=== PATIENT | male | born 1955 | race Caucasian/White ===

== ENCOUNTER 2017-12-23 14:56 | Emergency (ER) | payer OTHER ==
[~2017-12-23] VITALS: Ht 180.3 cm; Wt 124.7 kg
[2017-12-23] MEDS ORDERED: GABAPENTIN600 M1 PO (15:07)
[2017-12-23] MEDS ORDERED: LISINOPRIL10 MG PO (15:07)
[2017-12-23] MEDS ORDERED: OXYCONTIN20 M1 PO (15:08)
[2017-12-23] MEDS ORDERED: FLEXERIL PO (15:08)
[2017-12-23] MEDS ORDERED: PERCOCET 10-321 EACH PO (15:08)
[2017-12-23 15:50] LABS: ABSOLUTE EOSINOPHILS 0.2 thou/uL (0.0-0.7); ABSOLUTE LYMPHOCYTES 1.4 thou/uL (0.8-5.3); ABSOLUTE MONOCYTES 0.6 thou/uL (0.0-1.2); ABSOLUTE NEUTROPHILS 4.1 thou/uL (1.6-8.1); BASOPHILS 0.4 %; EOSINOPHILS 3.4 %; HEMATOCRIT 31.4 % (42.0-52.0); HEMOGLOBIN 10.4 gm/dL (14.0-18.0); LYMPHOCYTES 21.7 %; MCH 27.4 pg (26.0-34.0); MCV 82.9 fL (80.0-100.0); MONOCYTES 9.5 %; MPV 7.6 fl. (7.2-11.1); NUCLEATED RBCS 0 /100WBC; PLATELET COUNT* 258 thou/uL (150-400); RBC 3.79 mil/uL (4.50-6.00); RDW-CV 16.7 % (10.5-14.5); WBC 6.4 thou/uL (4.0-11.0)
[2017-12-23 15:58] LABS: URINE BILIRUBIN NEGATIVE (Negative); URINE BLOOD NEGATIVE (Negative); URINE CLARITY CLEAR; URINE COLOR YELLOW; URINE GLUCOSE-RANDOM NEGATIVE (Negative); URINE KETONES NEGATIVE (Negative); URINE LEUKOCYTES-REFLEX NEGATIVE (Negative); URINE NITRITE-REFLEX NEGATIVE (Negative); URINE PROTEIN TRACE (Negative); URINE SPECIFIC GRAVITY 1.025 (1.005-1.030); URINE UROBILINOGEN 0.2 E.U./dl (0.2-1.0)
[2017-12-23 16:08] LABS: CREATININE 1.4 mg/dL (0.6-1.3); POTASSIUM 3.8 mmol/L (3.5-5.1)
[2017-12-23 16:19] LABS: ALBUMIN 3.4 g/dL (3.4-5.0); TOTAL BILIRUBIN 0.3 mg/dL (<0.1-1.0); TOTAL PROTEIN 7.4 g/dL (6.4-8.2)
[2017-12-23] MEDS ORDERED: PREDNISONE 10 M10 M1 PO (17:00)
[2017-12-23] MEDS ORDERED: FUROSEMIDE 20 M20 M1 PO (17:04)
[2017-12-23] MEDS ORDERED: PERCOCET 5-3251 EACH PO (17:05)
[2017-12-23 17:48] VITALS: BP 166/81
== END 2017-12-23 17:50 | disposition home or self-care (01) ==
LOC: M.ERS 14:56
PROVIDERS: Nurse Practitioner
DX: R60.0 Localized edema (principal); Z88.5 Allergy status to narcotic agent; Z88.6 Allergy status to analgesic agent

== ENCOUNTER 2018-01-02 20:14 | Emergency (ER) | payer OTHER ==
[~2018-01-02] VITALS: Ht 180.3 cm; Wt 123.4 kg
[~2018-01-02 20:14] MED LIST: FLEXERIL PO; FUROSEMIDE 20 M20 M1 PO; GABAPENTIN600 M1 PO; LISINOPRIL10 MG PO; OXYCONTIN20 M1 PO; PERCOCET 10-321 EACH PO; PERCOCET 5-3251 EACH PO; PREDNISONE 10 M10 M1 PO
[2018-01-02] MEDS ORDERED: NIACIN50 MG PO (20:25)
[2018-01-02] MEDS ORDERED: K-DUR 20 MEQ T20 MEQ PO (20:46)
[2018-01-02] MEDS ORDERED: LASIX 40 MG TAB40 M2 PO (20:46)
[2018-01-02 20:53] VITALS: BP 145/78
== END 2018-01-02 20:57 | disposition home or self-care (01) ==
LOC: M.ERS 20:14
DX: R60.0 Localized edema (principal)